=== PATIENT | male | born 1990 | race Hispanic/Latino ===

== ENCOUNTER 2019-12-02 09:07 | Emergency (ER) | payer MEDICAID ==
[2019-12-02 09:53] LABS: BASOPHILS % (AUTO) 0.9 % (0.0-5.0); EOSINOPHILS % (AUTO) 3.1 % (0.0-8.0); HEMATOCRIT 43.8 % (42-54); LYMPHOCYTES % (AUTO) 41.3 % (21.0-51.0); MEAN CORPUSCULAR HEMOGLOBIN 30.7 pg (27.0-33.0); MEAN CORPUSCULAR HGB CONC 34.7 g/dL (32.0-36.0); MEAN CORPUSCULAR VOLUME 88.5 fL (79-99); MONOCYTES % (AUTO) 7.2 % (3.0-13.0); NEUTROPHILS % (AUTO) 46.6 % (40.0-77.0); PLATELET COUNT (AUTO) 207 K/uL (130-400); RED BLOOD CELL COUNT(AUTO) 4.95 MIL/uL (4.50-6.20); RED CELL DISTRIBUTION WIDTH 12.4 % (11.0-15.5); WHITE BLOOD COUNT (AUTO) 6.8 K/uL (4.8-10.8)
[2019-12-02 10:03] LABS: APPEARANCE,URINE Clear (CLEAR); BILIRUBIN,URINE Negative (NEGATIVE); COLOR,URINE Dark Yellow (YELLOW); GLUCOSE, URINE (UA) Negative (NEGATIVE); KETONES,URINE Negative (NEGATIVE); LEUKOCYTE ESTERASE ,URINE Negative (NEGATIVE); NITRATE,URINE Negative (NEGATIVE); OCCULT BLOOD,URINE Negative (NEGATIVE); PROTEIN,URINE Trace mg/dL (NEGATIVE)
[2019-12-02 10:06] LABS: INR 0.93 (0.85-1.15); PARTIAL THROMBOPLASTIN TIME 23.8 SEC (26.3-35.5); PROTHROMBIN TIME 10.1 SEC (9.6-11.6)
[2019-12-02 10:08] LABS: CREATININE 0.7 mg/dL (0.5-1.5); POTASSIUM 3.9 mmol/L (3.5-5.1)
[2019-12-02 10:11] LABS: AMPHET/METH SCREEN,URINE NEGATIVE (NEGATIVE); BARBITURATE SCREEN, URINE NEGATIVE (NEGATIVE); BENZODIAZEPINES SCREEN,URINE NEGATIVE (NEGATIVE); CANNABINOID SCREEN,URINE POSITIVE (NEGATIVE); COCAINE SCREEN,URINE NEGATIVE (NEGATIVE); OPIATE SCREEN,URINE NEGATIVE (NEGATIVE); PHENCYCLIDINE SCREEN,URINE NEGATIVE (NEGATIVE)
[2019-12-02 10:13] LABS: BILIRUBIN,TOTAL 0.4 mg/dL (0.2-1.0); TOTAL PROTEIN, SERUM 7.1 g/dL (6.0-8.3)
[2019-12-02 10:31] LABS: BACTERIA,URINE None Seen /HPF (None Seen); RBC,URINE None Seen /HPF (0-1); SQUAMOUS EPITHELIAL CELL,UR Rare /HPF (0-2); WBC,URINE None Seen /HPF (0-1)
[2019-12-02] MEDS ORDERED: IBUPROFEN 600 MG TABLET ONE (11:27)
== END 2019-12-02 11:31 | disposition home or self-care (01) ==
LOC: EDH 09:07
DX: S29.011A Strain of muscle and tendon of front wall of thorax, initial encounter (principal); R07.89 Other chest pain; M94.0 Chondrocostal junction syndrome [Tietze]; Z72.0 Tobacco use; X58.XXXA Exposure to other specified factors, initial encounter; Y93.89 Activity, other specified; Y92.89 Other specified places as the place of occurrence of the external cause; Y99.8 Other external cause status
CPT/HCPCS: 36415; 71045; 80053; 80305; 81001; 82550; 84484; 85025; 85610; 85730; 93005

== ENCOUNTER 2021-03-29 18:42 | Emergency (ER) | payer MEDICAID ==
[~2021-03-29] VITALS: Ht 175.3 cm; Wt 127.0 kg
[2021-03-29 18:57] VITALS: BP 132/73
[2021-03-29] MEDS ORDERED: ONDANSETRON 4MG INJ IVP ONE (19:00)
[2021-03-29 19:19] LABS: BASOPHILS % (AUTO) 0.7 % (0.0-5.0); EOSINOPHILS % (AUTO) 0.5 % (0.0-8.0); LYMPHOCYTES % (AUTO) 14.7 % (21.0-51.0); MEAN CORPUSCULAR HEMOGLOBIN 31.5 pg (27.0-33.0); MEAN CORPUSCULAR HGB CONC 34.6 g/dL (32.0-36.0); MEAN CORPUSCULAR VOLUME 91.1 fL (79-99); NEUTROPHILS % (AUTO) 77.3 % (40.0-77.0); PLATELET COUNT (AUTO) 207 K/uL (130-400); RED BLOOD CELL COUNT(AUTO) 5.05 MIL/uL (4.50-6.20); RED CELL DISTRIBUTION WIDTH 12.6 % (11.0-15.5); WHITE BLOOD COUNT (AUTO) 12.8 K/uL (4.8-10.8)
[2021-03-29 19:47] LABS: CARBON DIOXIDE 25 mmol/L (21-32); CHLORIDE 105 mmol/L (101-111); GLOMERULAR FILTR. RATE CALC 95 mL/min (>60); GLUCOSE,RANDOM 132 mg/dL (70-105); POTASSIUM 3.7 mmol/L (3.5-5.1); SODIUM SERUM 143 mmol/L (136-145); UREA NITROGEN, BLOOD 12 mg/dL (7-18)
[2021-03-29 19:52] LABS: ALANINE AMINOTRANSFERASE 45 U/L (12-78); ALBUMIN 4.3 g/dL (3.5-5.0); ALCOHOL, BLOOD < 3 mg/dL (0-10); ASPARTATE AMINOTRANSFERASE 23 U/L (10-37); BILIRUBIN,TOTAL 0.3 mg/dL (0.2-1.0); TOTAL PROTEIN, SERUM 7.9 g/dL (6.0-8.3)
[2021-03-29] MEDS ORDERED: ONDANSETRON 4MG INJ ONE (20:18)
[2021-03-29] MEDS ORDERED: LEVETIRACETAM 500 MG/5 ML SD VIAL IV ONE (20:18)
[2021-03-29 20:26] VITALS: BP 121/71
[2021-03-29 20:30] LABS: APPEARANCE,URINE Clear (CLEAR); BILIRUBIN,URINE Negative (NEGATIVE); COLOR,URINE Yellow (YELLOW); GLUCOSE, URINE (UA) Negative (NEGATIVE); KETONES,URINE 15 mg/dL (NEGATIVE); LEUKOCYTE ESTERASE ,URINE Negative (NEGATIVE); NITRATE,URINE Negative (NEGATIVE); OCCULT BLOOD,URINE Negative (NEGATIVE); PROTEIN,URINE POS 2+ mg/dL (NEGATIVE)
[2021-03-29] MEDS ORDERED: COMPOUND IV MISC 1 EACH IVSOLN MISC PRN (20:30)
[2021-03-29 20:37] LABS: BACTERIA,URINE Rare /HPF (None Seen); RBC,URINE 0-1 /HPF (0-1); SQUAMOUS EPITHELIAL CELL,UR Rare /HPF (0-2); WBC,URINE 0-1 /HPF (0-1)
[2021-03-29 20:38] LABS: AMPHET/METH SCREEN,URINE NEGATIVE (NEGATIVE); BARBITURATE SCREEN, URINE NEGATIVE (NEGATIVE); BENZODIAZEPINES SCREEN,URINE NEGATIVE (NEGATIVE); CANNABINOID SCREEN,URINE POSITIVE (NEGATIVE); COCAINE SCREEN,URINE NEGATIVE (NEGATIVE); OPIATE SCREEN,URINE NEGATIVE (NEGATIVE); PHENCYCLIDINE SCREEN,URINE NEGATIVE (NEGATIVE)
[2021-03-29] MEDS ORDERED: LEVETIRACETAM 1,000 MG in 0.9%NACL 100ML 100 ML IV SCH (22:00)
[2021-03-29 23:49] VITALS: BP 111/60
== END 2021-03-29 23:50 | disposition home or self-care (01) ==
LOC: EDH 18:42
DX: R56.9 Unspecified convulsions (principal); R11.2 Nausea with vomiting, unspecified; I10 Essential (primary) hypertension; E11.9 Type 2 diabetes mellitus without complications
CPT/HCPCS: 36415; 70450; 80053; 80305; 81001; 85025; 93005; 96365; 96375; 99285; J1953; J2405

== ENCOUNTER 2022-05-23 08:58 | Emergency (ER) | payer MEDICAID ==
[~2022-05-23] VITALS: Ht 170.2 cm; Wt 111.1 kg
[2022-05-23] MEDS ORDERED: METF-444 PO (09:25)
[2022-05-23] MEDS ORDERED: LEVE10006 PO (09:25)
[2022-05-23] MEDS ORDERED: DIVA-78 PO (09:25)
[2022-05-23] MEDS ORDERED: ZONI100C87 PO (09:25)
[2022-05-23 09:46] LABS: BASOPHILS % (AUTO) 0.6 % (0.0-5.0); EOSINOPHILS % (AUTO) 0.6 % (0.0-8.0); HEMATOCRIT 44.7 % (42-54); LYMPHOCYTES % (AUTO) 15.1 % (21.0-51.0); MEAN CORPUSCULAR HEMOGLOBIN 31.6 pg (27.0-33.0); MEAN CORPUSCULAR HGB CONC 34.9 g/dL (32.0-36.0); MEAN CORPUSCULAR VOLUME 90.5 fL (79-99); MONOCYTES % (AUTO) 4.2 % (3.0-13.0); NEUTROPHILS % (AUTO) 78.8 % (40.0-77.0); PLATELET COUNT (AUTO) 193 K/uL (130-400); RED BLOOD CELL COUNT(AUTO) 4.94 MIL/uL (4.50-6.20); RED CELL DISTRIBUTION WIDTH 12.8 % (11.0-15.5); WHITE BLOOD COUNT (AUTO) 8.8 K/uL (4.8-10.8)
[2022-05-23 10:03] LABS: ALBUMIN 4.1 g/dL (3.5-5.0); CREATININE 1.1 mg/dL (0.5-1.5); POTASSIUM 3.6 mmol/L (3.5-5.1); TOTAL PROTEIN, SERUM 7.6 g/dL (6.0-8.3)
[2022-05-23 10:19] LABS: APPEARANCE,URINE CLEAR (CLEAR); BILIRUBIN,URINE NEGATIVE (NEGATIVE); COLOR,URINE LIGHT-YELLOW (YELLOW); GLUCOSE, URINE (UA) NEGATIVE (NEGATIVE); KETONES,URINE 10 mg/dL (NEGATIVE); LEUKOCYTE ESTERASE ,URINE NEGATIVE Leu/uL (NEGATIVE); NITRATE,URINE NEGATIVE (NEGATIVE); OCCULT BLOOD,URINE NEGATIVE (NEGATIVE); PH,URINE 5.5 (5.0-8.0); PROTEIN,URINE 50 mg/dL (NEGATIVE); UROBILINOGEN,URINE 0.2 mg/dL (0.2-1.0)
[2022-05-23 10:29] LABS: MUCUS,URINE FEW LPF (None Seen); RBC,URINE 0-1 /HPF (0-1); SQUAMOUS EPITHELIAL CELL,UR RARE /HPF (0-2)
[2022-05-23] MEDS ORDERED: ACETAMINOPHEN 325 MG TAB PO ONE (11:30)
[2022-05-23] MEDS ORDERED: IBUPROFEN 800 MG TAB PO ONE (13:00)
[2022-05-23] MEDS ORDERED: COMPOUND IV MISC 1 EACH IVSOLN MISC PRN (13:00)
[2022-05-23] MEDS ORDERED: LEVETIRACETAM 500 MG in 0.9%NACL 100ML 100 ML IV SCH (14:00)
[2022-05-23 14:27] VITALS: BP 116/63
== END 2022-05-23 14:29 | disposition home or self-care (01) ==
LOC: EDH 08:58
DX: G40.909 Epilepsy, unspecified, not intractable, without status epilepticus (principal); R00.1 Bradycardia, unspecified; Z20.822 Contact with and (suspected) exposure to COVID-19; E11.9 Type 2 diabetes mellitus without complications; Z79.1 Long term (current) use of non-steroidal anti-inflammatories (NSAID); Z79.84 Long term (current) use of oral hypoglycemic drugs
CPT/HCPCS: 99285; 96365; 87635; 80164; 84484; 80053; 85025; 87804 ×2; 81001; 36415; 93005; C9803; J1953; 80177

== ENCOUNTER 2024-01-24 10:29 | Emergency (ER) | payer MEDICAID ==
[~2024-01-24] VITALS: Ht 175.3 cm; Wt 127.0 kg
[~2024-01-24 10:29] MED LIST: DIVA-78 PO; LEVE10006 PO; METF-444 PO; ZONI100C87 PO
[2024-01-24] MEDS: 0.9%NACL 1000ML 1,000 ML IV ONE (11:03)
[2024-01-24] MEDS: LEVETIRACETAM 500 MG/5 ML SD VIAL IV SCH (11:04)
[2024-01-24 11:10] LABS: BASOPHILS # (AUTO) 0.06 K/uL (0.00-0.20); BASOPHILS % (AUTO) 0.8 % (0.0-5.0); EOSINOPHILS # (AUTO) 0.14 K/uL (0.00-0.70); EOSINOPHILS % (AUTO) 1.9 % (0.0-8.0); HEMATOCRIT 41.5 % (42-54); IMMATURE GRANULOCYTE ABSOLUTE 0.06 K/uL (0-1); LYMPHOCYTES # (AUTO) 1.8 K/uL (1.0-4.8); LYMPHOCYTES % (AUTO) 24.3 % (21.0-51.0); MEAN CORPUSCULAR HEMOGLOBIN 30.9 pg (27.0-33.0); MEAN CORPUSCULAR HGB CONC 35.2 g/dL (32.0-36.0); MEAN CORPUSCULAR VOLUME 87.9 fL (79-99); MONOCYTES # (AUTO) 0.6 K/uL (0.1-1.0); MONOCYTES % (AUTO) 7.6 % (3.0-13.0); NEUTROPHILS # (AUTO) 4.8 K/uL (1.8-7.7); NEUTROPHILS % (AUTO) 64.6 % (40.0-77.0); PLATELET COUNT (AUTO) 204 K/uL (130-400); RED BLOOD CELL COUNT(AUTO) 4.72 MIL/uL (4.50-6.20); RED CELL DISTRIBUTION WIDTH 12.5 % (11.0-15.5); WHITE BLOOD COUNT (AUTO) 7.5 K/uL (4.8-10.8)
[2024-01-24 11:18] LABS: POTASSIUM 3.6 mmol/L (3.5-5.1)
[2024-01-24 11:23] LABS: ALBUMIN 3.7 g/dL (3.5-5.0); BILIRUBIN,TOTAL 0.4 mg/dL (0.2-1.0); TOTAL PROTEIN, SERUM 6.9 g/dL (6.0-8.3)
[2024-01-24] MEDS ORDERED: FLUT16H NS (12:30)
[2024-01-24 12:59] VITALS: BP 133/80; PULSE 51; RESP 17; O2SAT 96
== END 2024-01-24 13:15 | disposition home or self-care (01) ==
LOC: EDH 10:29
DX: G40.89 Other seizures (principal); E11.9 Type 2 diabetes mellitus without complications; Z79.899 Other long term (current) drug therapy
CPT/HCPCS: 99284; 96365; 96366; 80053; 85025; 36415; J1953; J7030

== ENCOUNTER 2024-04-13 12:00 | Emergency (ER) | payer MEDICAID ==
[~2024-04-13] VITALS: Ht 177.8 cm; Wt 99.8 kg
[~2024-04-13 12:00] MED LIST changes: +FLUT16H NS
--- NOTE | 2024-04-13 12:26 | ERN ---
General Chief Complaint: Seizure Stated Complaint: SEIZ Time Seen by MD: 12:16 Source: patient History of Present Illness Initial Comments Patient is a 33-year-old obese male with a known history of seizures. He is currently taking divalproex Keppra and zonisamide. Seizures occurred approximately 2 hours before coming to the hospital. In the emergency room he had emesis. Patient states this is the 1st time he has had a seizure since he started taking his medications. States he does not drink alcohol. Uses occasional marijuana. No other systemic symptoms, no fevers, no cough, no diarrhea. Allergies: Coded Allergies: No Known Drug Allergies (Unverified Allergy, Unknown, 12/02/19) Home Meds Reported Medications Fluticasone Propionate (Fluticasone Propionate) 50 Mcg/Actuation [place].susp, 2 PUFF NS DIRECTED 01/24/24 Metformin HCl (Metformin HCl) 500 Mg Tablet, 500 MG PO BID, TAB 05/23/22 Zonisamide (Zonisamide) 100 Mg Capsule, 200 MG PO BID, CAP 05/23/22 Divalproex Sodium (Divalproex Sodium) 500 Mg Tablet.dr, 500 MG PO BID, TAB 05/23/22 Levetiracetam (Levetiracetam) 1,000 Mg Tablet, 1500 MG PO BID, TAB 05/23/22 Past Medical History Past Medical History: Seizure Past Surgical History: Other Social History Social History: Negative ROS Dictation Review of systems patient has a headache, emesis, and no postictal activity or symptoms Physical Exam General Appearance: (+) mild distress, (+) obese Orientation: (+) oriented x 3 Head/Face Trauma: No Eye: bilateral eye normal inspection, bilateral eye PERRL, bilateral eye EOMI Ear, Nose, Throat: (+) hearing grossly normal Neck: (+) normal inspection, (+) supple, (+) full range of motion, (+) no JVD Respiratory: (+) chest non-tender, (+) lungs clear, (+) well ventilated Heart: (+) regular, (+) no gallop Vascular: (+) no edema, (+) normal peripheral pulse Gastrointestinal: (+) soft, (+) non-tender, (+) bowel sound present Results Laboratory and Microbiology Lab and Micro Result Laboratory Tests Test 04/13/24 13:07 White Blood Count 8.2 K/uL (4.8-10.8) Red Blood Count 4.97 MIL/uL (4.50-6.20) Hemoglobin 15.5 g/dL (14.0-18.0) Hematocrit 44.9 % (42-54) Mean Corpuscular Volume 90.3 fL (79-99) Mean Corpuscular Hemoglobin 31.2 pg (27.0-33.0) Mean Corpuscular Hemoglobin Concent 34.5 g/dL (32.0-36.0) Red Cell Distribution Width 12.9 % (11.0-15.5) Platelet Count 208 K/uL (130-400) Mean Platelet Volume 9.3 fL (7.5-10.5) Immature Granulocyte % (Auto) 1.2 % (0-1) H Neutrophils (%) (Auto) 76.6 % (40.0-77.0) Lymphocytes (%) (Auto) 17.1 % (21.0-51.0) L Monocytes (%) (Auto) 4.4 % (3.0-13.0) Eosinophils (%) (Auto) 0.1 % (0.0-8.0) Basophils (%) (Auto) 0.6 % (0.0-5.0) Neutrophils # (Auto) 6.3 K/uL (1.8-7.7) Lymphocytes # (Auto) 1.4 K/uL (1.0-4.8) Monocytes # (Auto) 0.4 K/uL (0.1-1.0) Eosinophils # (Auto) 0.01 K/uL (0.00-0.70) Basophils # (Auto) 0.05 K/uL (0.00-0.20) Absolute Immature Granulocyte (auto 0.10 K/uL (0-1) Nucleated Red Blood Cells 0.0 % (0.0-0.19) Sodium Level 133 mmol/L (136-145) L Potassium Level 4.2 mmol/L (3.5-5.1) Chloride Level 102 mmol/L (101-111) Carbon Dioxide Level 25 mmol/L (21-32) Blood Urea Nitrogen 9 mg/dL (7-18) Creatinine 1.0 mg/dL (0.5-1.3) Glomerular Filtration Rate Calc 103 mL/min (>90) Random Glucose 189 mg/dL (70-105) H Total Calcium 9.8 mg/dL (8.5-10.1) MDM Patient has a seizure while on his antiseizure medications. Differential is quite broad, can include dehydration electrolyte abnormalities trauma alcohol abuse noncompliance infection. I am re loading the patient with Keppra and giving him IV fluids. He is receiving Tylenol for his headache. Electrolytes and CBC have also been drawn. They are normal patient has been seizure-free for approximately 4 hours I will discharge him home. Follow-up with his neurologist. ED Course Orders Procedure Category Date Status Time Pulse Ox(Continuous) RT 04/13/24 Transmitted 12:05 Saline Lock Iv CPOE 04/13/24 Transmitted 12:05 Seizure Precautions CPOE 04/13/24 Transmitted 12:05 Cbc With Differential LAB 04/13/24 Complete 12:05 Basic Metabolic Panel LAB 04/13/24 Complete 12:05 Levetiracetam 500 PHA 04/13/24 In Process Mg/5 Ml Sd V (Keppra 5 13:00 Acetaminophen 500mg PHA 04/13/24 Complete Tab (Tylenol 500mg T 14:30 Current Medications Medications (Trade) Dose Ordered Sig/Werner Route PRN Reason Start Time Stop Time Status Last Admin Dose Admin Acetaminophen (TYLenol 500MG TAB) 1,000 mg ONCE ONCE PO 04/13/24 14:30 04/13/24 14:31 DC 04/13/24 14:33 Levetiracetam (kepPRA 500 MG/5 ML SD VIAL) 1,000 mg ONCE IV 04/13/24 13:00 05/13/24 12:59 04/13/24 13:04 Vital Signs Date Time Temp Pulse Resp B/P (MAP) Pulse Ox O2 Delivery O2 Flow Rate FiO2 04/13/24 14:41 68 16 122/79 98 Room Air* 0 21 04/13/24 13:19 97.9 68 16 108/73 98 Room Air* 0 21 04/13/24 12:14 97.9 68 16 123/59 98 Room Air* 0 21 04/13/24 12:02 98.1 90 18 118/70 98 DX & DISP Disposition: Discharge Departure Condition: Stable Referrals: ESTER HUERTAS MD (PCP) KRISTIAN COPELAND MD Apr 13, 2024 12:26
[2024-04-13] MEDS: leveTIRACEtam 500 MG/5 ML SD VIAL IV SCH (13:04)
[2024-04-13 13:17] LABS: BASOPHILS # (AUTO) 0.05 K/uL (0.00-0.20); BASOPHILS % (AUTO) 0.6 % (0.0-5.0); EOSINOPHILS # (AUTO) 0.01 K/uL (0.00-0.70); EOSINOPHILS % (AUTO) 0.1 % (0.0-8.0); HEMATOCRIT 44.9 % (42-54); LYMPHOCYTES # (AUTO) 1.4 K/uL (1.0-4.8); LYMPHOCYTES % (AUTO) 17.1 % (21.0-51.0); MEAN CORPUSCULAR HEMOGLOBIN 31.2 pg (27.0-33.0); MEAN CORPUSCULAR HGB CONC 34.5 g/dL (32.0-36.0); MEAN CORPUSCULAR VOLUME 90.3 fL (79-99); MONOCYTES # (AUTO) 0.4 K/uL (0.1-1.0); MONOCYTES % (AUTO) 4.4 % (3.0-13.0); NEUTROPHILS # (AUTO) 6.3 K/uL (1.8-7.7); NEUTROPHILS % (AUTO) 76.6 % (40.0-77.0); PLATELET COUNT (AUTO) 208 K/uL (130-400); RED BLOOD CELL COUNT(AUTO) 4.97 MIL/uL (4.50-6.20); RED CELL DISTRIBUTION WIDTH 12.9 % (11.0-15.5); WHITE BLOOD COUNT (AUTO) 8.2 K/uL (4.8-10.8)
[2024-04-13 13:22] LABS: POTASSIUM 4.2 mmol/L (3.5-5.1)
[2024-04-13] MEDS: acetaMINOPHEN 500 MG TABLET PO ONE (14:33)
[2024-04-13 16:08] VITALS: BP 137/80; PULSE 70; RESP 14; TEMP 97.9; O2SAT 98
== END 2024-04-13 16:09 | disposition home or self-care (01) ==
LOC: EDSEX 12:00 → EDH 12:00 → EDBD 12:00 → EDH 16:09
DX: R56.9 Unspecified convulsions (principal); R11.10 Vomiting, unspecified; E66.9 Obesity, unspecified; Z79.84 Long term (current) use of oral hypoglycemic drugs; Z79.899 Other long term (current) drug therapy; Z98.890 Other specified postprocedural states
CPT/HCPCS: 99285; 96365; 80048; 85025; 36415; J1953

== ENCOUNTER 2024-05-08 08:30 | Emergency (ER) | payer MEDICAID ==
[~2024-05-08] VITALS: Ht 172.7 cm; Wt 104.3 kg
--- NOTE | 2024-05-08 08:41 | ERN ---
General Chief Complaint: Seizure Stated Complaint: SEIZURE Time Seen by MD: 08:41 History of Present Illness Initial Comments 33M BIB EMS for seizures. Patient has a history of epilepsy, on Depakote and Keppra. Patient had a tonic-clonic seizure lasting 20 seconds at 7:20 a.m. this morning. He had another episode at 7:30 a.m. followed by another episode at 7:35 a.m.. Tonic-clonic in nature lasting about 20 seconds. Patient was postictal in between all three. EMS arrived to find the patient postictal. Patient has sta ble vital signs per EMS, but is altered. Glucose stable per EMS. No injuries. No meds given by EMS. Medications: Fluoxetine, zonisamide 100 mg b.i.d., divalproex 500 mg b.i.d., Keppra 1000 mg b.i.d. Allergies: Coded Allergies: No Known Drug Allergies (Unverified Allergy, Unknown, 12/02/19) Home Meds Reported Medications Fluticasone Propionate (Fluticasone Propionate) 50 Mcg/Actuation [place].susp, 2 PUFF NS DIRECTED 01/24/24 Metformin HCl (Metformin HCl) 500 Mg Tablet, 500 MG PO BID, TAB 05/23/22 Zonisamide (Zonisamide) 100 Mg Capsule, 200 MG PO BID, CAP 05/23/22 Divalproex Sodium (Divalproex Sodium) 500 Mg Tablet.dr, 500 MG PO BID, TAB 05/23/22 Levetiracetam (Levetiracetam) 1,000 Mg Tablet, 1500 MG PO BID, TAB 05/23/22 Past Medical History Past Medical History: Diabetes-Type II, Hypertension, Seizure Past Surgical History: None Social History Social History: Negative ROS Dictation Unable to obtain due to the patient's using a postictal. Physical Exam Physical Exam Dictation VITAL SIGNS: Reviewed. GENERAL APPEARANCE: Altered, obese, diaphoretic, postictal HEAD AND FACE: Non-traumatic. EYES: PERRL, pink conjunctivas, eyelid no trauma, anterior chamber clear. EARS: Pinnas intact and no signs of trauma or erythema. Ear canals clear and no discharge. TMs no erythema. NOSE: No discharge, no bleeding. OROPHARYNX: Mouth normal, teeth no caries, tongue pink. Pharynx clear, no erythema. Tonsils no exudates, no abscesses noted. Mucous membrane moist. NECK: Supple, non-tender, no thyromegaly, no masses, no JVD, no bruits. BREAST: Deferred. CHEST: No tenderness, no crepitus, no paradoxical movement, no retractions. LUNGS: Clear, well-ventilated, symmetric, no rales, no wheezing, no rhonchi, no stridor, good breath sounds bilaterally. HEART: Regular rate, regular rhythm, no murmur, no gallops. VASCULAR: No peripheral edema. ABDOMEN: Soft, positive bowel sounds, nondistended, no guarding, nontender, no rebound, no masses no hepatomegaly, no splenomegaly, no Amor's sign, no hernias. RECTAL: Deferred. GENITAL: Deferred. NEUROLOGICAL: Not speaking, agitated and confused, no obvious trauma or injuries, moving all limbs. Pupils are normal. MUSCULOSKELETAL: Neck nontender, full range of motion, back nontender, full range of motion. EXTREMITIES: Nontender, full range of motion. SKIN: Color pink, dry, no turgor, no rash, no lacerations, no abrasions, no contusions. LYMPHATICS: Deferred. Results Laboratory and Microbiology Lab and Micro Result Laboratory Tests Test 05/08/24 08:49 05/08/24 09:30 White Blood Count 6.7 K/uL (4.8-10.8) Red Blood Count 4.90 MIL/uL (4.50-6.20) Hemoglobin 15.5 g/dL (14.0-18.0) Hematocrit 45.3 % (42-54) Mean Corpuscular Volume 92.4 fL (79-99) Mean Corpuscular Hemoglobin 31.6 pg (27.0-33.0) Mean Corpuscular Hemoglobin Concent 34.2 g/dL (32.0-36.0) Red Cell Distribution Width 12.9 % (11.0-15.5) Platelet Count 198 K/uL (130-400) Mean Platelet Volume 9.0 fL (7.5-10.5) Immature Granulocyte % (Auto) 0.7 % (0-1) Neutrophils (%) (Auto) 58.5 % (40.0-77.0) Lymphocytes (%) (Auto) 32.7 % (21.0-51.0) Monocytes (%) (Auto) 5.4 % (3.0-13.0) Eosinophils (%) (Auto) 1.8 % (0.0-8.0) Basophils (%) (Auto) 0.9 % (0.0-5.0) Neutrophils # (Auto) 3.9 K/uL (1.8-7.7) Lymphocytes # (Auto) 2.2 K/uL (1.0-4.8) Monocytes # (Auto) 0.4 K/uL (0.1-1.0) Eosinophils # (Auto) 0.12 K/uL (0.00-0.70) Basophils # (Auto) 0.06 K/uL (0.00-0.20) Absolute Immature Granulocyte (auto 0.05 K/uL (0-1) Nucleated Red Blood Cells 0.0 % (0.0-0.19) Sodium Level 136 mmol/L (136-145) Potassium Level 3.4 mmol/L (3.5-5.1) L Chloride Level 99 mmol/L (101-111) L Carbon Dioxide Level 27 mmol/L (21-32) Blood Urea Nitrogen 11 mg/dL (7-18) Creatinine 1.1 mg/dL (0.5-1.3) Glomerular Filtration Rate Calc 92 mL/min (>90) Random Glucose 176 mg/dL (70-105) H Total Calcium 9.8 mg/dL (8.5-10.1) Magnesium Level 1.90 mg/dL (1.80-2.40) Serum Alcohol 5 mg/dL (0-10) Urine Color LIGHT-YELLOW (YELLOW) Urine Appearance CLEAR (CLEAR) Urine pH 5.5 (5.0-8.0) Urine Specific [place] 1.016 (1.001-1.031) Urine Protein 50 mg/dL (NEGATIVE) H Urine Glucose (UA) NEGATIVE mg/dL (NEGATIVE) Urine Ketones 10 mg/dL (NEGATIVE) H Urine Occult Blood NEGATIVE (NEGATIVE) Urine Nitrate NEGATIVE (NEGATIVE) Urine Bilirubin NEGATIVE mg/dL (NEGATIVE) Urine Urobilinogen 0.2 mg/dL (0.2-1.0) Urine Leukocyte Esterase NEGATIVE [place]/uL Urine RBC 0-1 /HPF (0-1) Urine WBC 0-1 /HPF (0-1) Urine Bacteria None /HPF (None Seen) Urine Opiates Screen NEGATIVE (NEGATIVE) Urine Barbiturates Screen NEGATIVE (NEGATIVE) Urine Phencyclidine Screen NEGATIVE (NEGATIVE) Urine Amphetamines Screen NEGATIVE (NEGATIVE) Urine Benzodiazepines Screen NEGATIVE (NEGATIVE) Urine Cocaine Screen NEGATIVE (NEGATIVE) Urine Marijuana (THC) Screen POSITIVE (NEGATIVE) H MDM CC: Seizures, three episodes over about a 20 minute timeframe. Independent historian: EMS, patient is postictal and unable to answer questions. Comorbidities: Obesity, seizure disorder Limitations by social determinants of health: None Initially patient presents altered, likely postictal, recent seizures. Life-threatening presentation at the time of my initial evaluation. Patient received IV Ativan 2 mg here in the ER. Received Keppra. UDS positive for marijuana, also alcohol on board. Labs ordered and interpreted by me. I did recommend that the patient reduces recreational drug abuse. No imaging indicated Patient was monitored for a few hours and became more alert. I considered admission. I offered the patient admission for neurological consultation and review of his medications, but the patient wants to go home now. He is alert and oriented x4. He does have his medications including Depakote and Keppra. He does not need any refills. COPA: high risk, post ictal, altered awareness on arrival, agitated, pale, sweaty. DATA: Independent historian EMS patient not alert on arrival. Labs reviewed & interpreted by me. RISK: considered admission, patient decline. IV ativan. ED Course Orders Procedure Category Date Status Time Levetiracetam 500 PHA 05/08/24 Complete Mg/5 Ml Sd V (Keppra 5 09:00 0.9%Nacl 1000ml (Ns PHA 05/08/24 Complete 1000ml) 09:00 Alcohol, Blood LAB 05/08/24 Complete 08:35 Cbc With Differential LAB 05/08/24 Complete 08:35 Basic Metabolic Panel LAB 05/08/24 Complete 08:35 Magnesium LAB 05/08/24 Complete 08:35 Lorazepam 2 Mg PHA 05/08/24 Complete (Ativan) 09:00 Ondansetron 4mg Inj PHA 05/08/24 Complete (Zofran 4mg Inj) 09:00 Levetiracetam 500 PHA 05/08/24 Complete Mg/5 Ml Sd V (Keppra 5 09:00 Lorazepam 2 Mg PHA 05/08/24 Complete (Ativan) 09:00 Ondansetron 4mg Inj PHA 05/08/24 Complete (Zofran 4mg Inj) 09:00 Urinalysis Profile LAB 05/08/24 Complete 09:45 Drug Screen Urine LAB 05/08/24 Complete 09:45 Current Medications Medications (Trade) Dose Ordered Sig/Werner Route PRN Reason Start Time Stop Time Status Last Admin Dose Admin Levetiracetam (kepPRA 500 MG/5 ML SD VIAL) 1,000 mg ONCE IV 05/08/24 09:00 05/08/24 17:16 DC 05/08/24 08:44 Levetiracetam (kepPRA 500 MG/5 ML SD VIAL) 1,000 mg ONCE IV 05/08/24 09:00 05/08/24 17:16 DC Lorazepam (AtiVAN) 2 mg ONCE ONCE IVP 05/08/24 09:00 05/08/24 09:01 DC 05/08/24 08:44 Lorazepam (AtiVAN) 2 mg ONCE ONCE IVP 05/08/24 09:00 05/08/24 09:01 DC Ondansetron HCl (zoFRAN 4MG INJ) 4 mg ONCE ONCE IVP 05/08/24 09:00 05/08/24 09:01 DC 05/08/24 08:43 Ondansetron HCl (zoFRAN 4MG INJ) 4 mg ONCE ONCE IVP 05/08/24 09:00 05/08/24 09:01 DC Sodium Chloride 1,000 ml @ 0 mls/hr ONCE ONCE IV 05/08/24 09:00 05/08/24 09:01 DC 05/08/24 08:59 Vital Signs Date Time Temp Pulse Resp B/P (MAP) Pulse Ox O2 Delivery O2 Flow Rate FiO2 05/08/24 12:20 98.2 71 20 116/61 97 Room Air* 0 21 05/08/24 08:32 71 20 123/75 99 0 05/08/24 08:32 98.2 71 20 123/75 99 Room Air* 0 21 DX & DISP Disposition: Discharge Departure Impression: Primary Impression: Breakthrough seizure Additional Impression: Marijuana use Condition: Stable Additional Instructions: You had a breakthrough seizure today. You received Ativan and Keppra here in the ER. Your lab work (CBC, BMP) is stable. You did test positive for marijuana. I recommend that he reduce marijuana use because this can increase your chances of having seizures. Please take all your home seizure medications. Please follow up with the primary doctor. Please return to the emergency department if you have any concerns. Referrals: EVELIN NGUYEN DO (PCP) PA PEREZ DO May 08, 2024 08:41
[2024-05-08] MEDS: ondanSETRON 4MG INJ IVP ONE ×2 (08:43→08:45)
[2024-05-08] MEDS: leveTIRACEtam 500 MG/5 ML SD VIAL IV SCH ×2 (08:44)
[2024-05-08] MEDS: LORazepam 2 MG/ML 1 ML VIAL IVP ONE ×2 (08:44)
[2024-05-08 08:57] LABS: BASOPHILS # (AUTO) 0.06 K/uL (0.00-0.20); BASOPHILS % (AUTO) 0.9 % (0.0-5.0); EOSINOPHILS # (AUTO) 0.12 K/uL (0.00-0.70); EOSINOPHILS % (AUTO) 1.8 % (0.0-8.0); HEMATOCRIT 45.3 % (42-54); IMMATURE GRANULOCYTE ABSOLUTE 0.05 K/uL (0-1); LYMPHOCYTES # (AUTO) 2.2 K/uL (1.0-4.8); LYMPHOCYTES % (AUTO) 32.7 % (21.0-51.0); MEAN CORPUSCULAR HEMOGLOBIN 31.6 pg (27.0-33.0); MEAN CORPUSCULAR HGB CONC 34.2 g/dL (32.0-36.0); MEAN CORPUSCULAR VOLUME 92.4 fL (79-99); MONOCYTES # (AUTO) 0.4 K/uL (0.1-1.0); MONOCYTES % (AUTO) 5.4 % (3.0-13.0); NEUTROPHILS # (AUTO) 3.9 K/uL (1.8-7.7); NEUTROPHILS % (AUTO) 58.5 % (40.0-77.0); PLATELET COUNT (AUTO) 198 K/uL (130-400); RED CELL DISTRIBUTION WIDTH 12.9 % (11.0-15.5); WHITE BLOOD COUNT (AUTO) 6.7 K/uL (4.8-10.8)
[2024-05-08] MEDS: 0.9%NACL 1000ML 1,000 ML IV ONE (08:59)
[2024-05-08 09:05] LABS: CREATININE 1.1 mg/dL (0.5-1.3); MAGNESIUM 1.9 mg/dL (1.80-2.40); POTASSIUM 3.4 mmol/L (3.5-5.1)
[2024-05-08 09:57] LABS: APPEARANCE,URINE CLEAR (CLEAR); BILIRUBIN,URINE NEGATIVE (NEGATIVE); COLOR,URINE LIGHT-YELLOW (YELLOW); GLUCOSE, URINE (UA) NEGATIVE (NEGATIVE); KETONES,URINE 10 mg/dL (NEGATIVE); LEUKOCYTE ESTERASE ,URINE NEGATIVE Leu/uL (NEGATIVE); NITRATE,URINE NEGATIVE (NEGATIVE); OCCULT BLOOD,URINE NEGATIVE (NEGATIVE); PH,URINE 5.5 (5.0-8.0); PROTEIN,URINE 50 mg/dL (NEGATIVE); UROBILINOGEN,URINE 0.2 mg/dL (0.2-1.0)
[2024-05-08 09:58] LABS: ADD UA MICROSCOPIC YES
[2024-05-08 10:00] LABS: MUCUS,URINE RARE LPF (None Seen); RBC,URINE 0-1 /HPF (0-1); WBC,URINE 0-1 /HPF (0-1)
[2024-05-08 10:05] LABS: AMPHET/METH SCREEN,URINE NEGATIVE (NEGATIVE); BARBITURATE SCREEN, URINE NEGATIVE (NEGATIVE); BENZODIAZEPINES SCREEN,URINE NEGATIVE (NEGATIVE); CANNABINOID SCREEN,URINE POSITIVE (NEGATIVE); COCAINE SCREEN,URINE NEGATIVE (NEGATIVE); OPIATE SCREEN,URINE NEGATIVE (NEGATIVE); PHENCYCLIDINE SCREEN,URINE NEGATIVE (NEGATIVE)
[2024-05-08 12:20] VITALS: BP 116/61; PULSE 71; RESP 20; TEMP 98.2; O2SAT 97
== END 2024-05-08 12:36 | disposition home or self-care (01) ==
LOC: EDH 08:30
DX: G40.909 Epilepsy, unspecified, not intractable, without status epilepticus (principal); E11.9 Type 2 diabetes mellitus without complications; E66.9 Obesity, unspecified; I10 Essential (primary) hypertension; F12.90 Cannabis use, unspecified, uncomplicated; Z79.84 Long term (current) use of oral hypoglycemic drugs
CPT/HCPCS: 99284; 96365; 96375; 83735; 80048; 80305; 85025; 36415; 81001; J1953; J7030; J2405; J2060